=== PATIENT | male | born 1980 | race Caucasian/White ===

== ENCOUNTER 2018-02-11 10:14 | Emergency (ER) | payer OTHER ==
[2018-02-11 10:22] VITALS: BP 138/91; PULSE 71; TEMP 98.1; BMI 30.9
[2018-02-11] MEDS ORDERED: KETOROLAC TROMETHAMINE 30 MG/1 ML VIAL IM ONE (10:52)
--- NOTE | 2018-02-11 10:54 | PDOC ---
History of Present Illness - General Chief Complaint: Injury Stated Complaint: INJURY Time Seen by Provider: 02/11/18 10:36 History Source: Patient - History of Present Illness Initial Comments: 02/11/18 12:00 37 year old male with no medical or surgical history present after accidental fall from back of non moving trailer while working. Patient reports using right arm to break fall. Denies head trauma or loss of consciousness. Complaining of pain, swelling and redness to right forearm and wrist. States unable to move right arm, denies numbness or tingling in finger. Occurred: reports: just prior to arrival Severity: reports: severe Pain Location: reports: upper extremity Method of Injury: Yes: fall Modifying Factors: improves with: immobilization Loss of Consciousness: no loss of consciousness Associated Symptoms (Fall): denies symptoms Past History - Travel Traveled outside of the country in the last 30 days: No - Past Medical History Allergies/Adverse Reactions: Allergies Allergy/AdvReac Type Severity Reaction Status Date / Time No Known Allergies Allergy Verified 02/11/18 10:19 Home Medications: Ambulatory Orders Ibuprofen [Motrin -] 600 mg PO TID #21 tablet 02/11/18 Oxycodone HCl/Acetaminophen [Percocet 5-325 mg Tablet] 1 - 2 tab PO Q4H PRN #30 tablet MDD 6 02/11/18 COPD: No DVT: No Dementia: No - Immunization History Td Vaccination: No - Suicide/Smoking/Psychosocial Hx Smoking Status: No Smoking History: Never smoked Number of Cigarettes Smoked Daily: 0 Information on smoking cessation initiated: No Hx Alcohol Use: No Drug/Substance Use Hx: No Substance Use Type: None Trauma Specific PMHX - Complaint Specific PMHX Arthritis: No Back Injury: No Neck Injury: No Hx Sacro Iliac Joint Dysfunction: No Review of Systems - Review of Systems Able to Perform ROS?: Yes Is the patient limited Estonian proficient: No Constitutional: No: Chills, Fever, Night Sweats, Weakness HEENTM: No: Nose Pain, Nose Congestion, Throat Swelling, Mouth Pain Respiratory: No: Cough, Orthopnea, Shortness of Breath, Wheezing, Productive cough Musculoskeletal: Yes: Joint Pain, Joint Swelling, Other (right wrist and forearm injury). No: Back Pain Integumentary: Yes: Bruising, Erythema Neurological: No: Paresthesia *Physical Exam - Vital Signs Last Vital Signs Temp Pulse Resp BP Pulse Ox 98.1 F 71 18 138/91 98 02/11/18 10:20 02/11/18 10:20 02/11/18 10:20 02/11/18 10:20 02/11/18 10:20 - Physical Exam General Appearance: Yes: Nourished, Appropriately Dressed HEENT: positive: YASMIN, Pharynx Normal. negative: Rhinorrhea, Sinus Tenderness Neck: positive: Supple. 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 NML intact, Fully Oriented, Alert Medical Decision Making - Medical Decision Making 02/11/18 12:07 37 year old male accidentally fell from top of trailer today while working using right arm to break fall A/p fracture of wrist -analgesia: given percocet and toradol -xray of wrist and forearm reassess + radial fracture + dislocation +dorsal hand cominuted fracture 02/11/18 13:32 ortho consulted morhine 4mg iv by AIR QUALITY ENGINEER Kalin Viramontes attended and reduced right wrist, and cast placed post reduction xray shows improvemet in alignment D/c home with strick elevation instruction rx: percocet instructed to follow up in with Dr. Dalton in 1 week *DC/Admit/Observation/Transfer Diagnosis at time of Disposition: Distal radius fracture, right Qualifiers: Encounter type: initial encounter Fracture type: closed Fracture morphology: unspecified fracture morphology Qualified Code(s): S52.501A - Unspecified fracture of the lower end of right radius, initial encounter for closed fracture Dislocation of wrist, closed Qualifiers: Encounter type: initial encounter Laterality: right Qualified Code(s): S63.004A - Unspecified dislocation of right wrist and hand, initial encounter - Discharge Dispostion Disposition: HOME Condition at time of disposition: Fair - Prescriptions Prescriptions: Ibuprofen [Motrin -] 600 mg PO TID #21 tablet Oxycodone HCl/Acetaminophen [Percocet 5-325 mg Tablet] 1 - 2 tab PO Q4H PRN #30 tablet MDD 6 PRN Reason: Pain - Referrals Referrals: Oseas Dalton MD [Staff Physician] - 2 Days (call tuesday for appointment this week ) - Patient Instructions Printed Discharge Instructions: How to Use a Sling Additional Instructions: PLEASE KEEP RIGHT ARM ELEVATED AT ALL TIMES -CALL DR. DALTON ON TUESDAY FOR FOLLOW UP APPOINTMENT -TAKE IBUPROFEN FOR PAIN AND PERCOCET FOR SEVERE PAIN - Post Discharge Activity Forms/Work/School Notes: Back to Work
[2018-02-11] MEDS ORDERED: KETOROLAC TROMETHAMINE 30 MG/1 ML VIAL ONE (10:55)
[2018-02-11] MEDS ORDERED: morphine SULFATE 4 MG/ML VIAL IVPUSH ONE (11:46)
[2018-02-11] MEDS ORDERED: LIDOCAINE HCL 2% (20ML MULTI-DOSE VIAL) NR ONE (11:46)
[2018-02-11] MEDS ORDERED: LIDOCAINE HCL 2% (50ML VIAL) SQ ONE (11:47)
[2018-02-11] MEDS ORDERED: morphine SULFATE 4 MG/ML VIAL ONE (11:49)
--- NOTE | 2018-02-11 12:49 | CONSULT ---
Consult Consult Specialty:: orthopedics - History of Present Illness History of Present Illness: 37y/o male c/o right wrist pain after falling of a trailer at work earlier today. He fell on his outstretched right wrist and immediately had pain. The pain is worse with use and better with rest. He came to the ED and had x-rays and was diagnosed with a distal radius fracture. He has pain with motion of the fingers. Denies numbness. There are no other associated, aggravating or relieving factors. - History Source History Provided By: Patient, Medical Record - Alcohol/Substance Use Hx Alcohol Use: No - Smoking History Smoking history: Never smoked Aproximately how many cigarettes per day: 0 Home Medications - Allergies Allergies/Adverse Reactions: Allergies Allergy/AdvReac Type Severity Reaction Status Date / Time No Known Allergies Allergy Verified 02/11/18 10:19 - Home Medications Home Medications: Ambulatory Orders Ibuprofen [Motrin -] 600 mg PO TID #21 tablet 02/11/18 Oxycodone HCl/Acetaminophen [Percocet 5-325 mg Tablet] 1 - 2 tab PO Q4H PRN #30 tablet MDD 6 02/11/18 Review of Systems - Review of Systems Constitutional: reports: No Symptoms Eyes: reports: No Symptoms HENT: reports: No Symptoms Neck: reports: No Symptoms Cardiovascular: reports: No Symptoms Respiratory: reports: No Symptoms Gastrointestinal: reports: No Symptoms Genitourinary: reports: No Symptoms Breasts: reports: No Symptoms Reported Musculoskeletal: reports: No Symptoms Integumentary: reports: No Symptoms Neurological: reports: No Symptoms Endocrine: reports: No Symptoms Hematology/Lymphatic: reports: No Symptoms Psychiatric: reports: No Symptoms Physical Exam Vital Signs: Vital Signs Temperature 98.1 F 02/11/18 10:20 Pulse Rate 71 02/11/18 10:20 Respiratory Rate 18 02/11/18 10:20 Blood Pressure 138/91 02/11/18 10:20 O2 Sat by Pulse Oximetry (%) 98 02/11/18 10:20 Constitutional: Yes: Well Nourished, No Distress, Calm Extremities: Yes: Other (Right wrist: Dinner fork deformity of the wrist. Mild edema. NO ecchymosis or open wounds. Tenderness over the distal radius. Pain with motion. Sensation intact. Well perfused.) Imaging - Results X-ray: Report Reviewed, Image Reviewed (Severely comminuted distal radus fracture with displacement and interarticiular extension) Assessment/Plan #1 Right distal radius fracture -Discussed today's findings and treatment options with the patient. I have explained to him he has a severe, displaced fracture of the distal radius. I have recommended closed reduction in the ER. He will likely need surgery even after the closed reduction and understands. He would like to proceed Closed reduction, Right distal radius fracture: Verbal consent was obtained. 10cc of 2% lidocaine was administered via hematoma block dorsally along the distal radius. After 10 minutes the arm was hung in traction for approximately 10 minutes. The wrist was then manipulated and correction of the deformity was achieved. The patient tolerated the procedure well. A short arm cast was then placed and a 3 point mold was made. NV exam intact after the reduction. This procedure was performed under the direct supervision of Dr. Darwin Rankin. -Elevation of the extremity discussed -Finger ROM discussed -F/u within [address] Mario.
== END 2018-02-11 13:49 | disposition home or self-care (01) ==
LOC: JERFT 10:14
PROC: 0PSHXZZ Reposition Right Radius, External Approach (ICD-10-PCS; principal; 2018-02-11)
PROC: 3E0233Z Introduction of Anti-inflammatory into Muscle, Percutaneous Approach (ICD-10-PCS; 2018-02-11)
PROC: 3E033NZ Introduction of Analgesics, Hypnotics, Sedatives into Peripheral Vein, Percutaneous Approach (ICD-10-PCS; 2018-02-11)
DX: S52.591A Other fractures of lower end of right radius, initial encounter for closed fracture (principal); W17.89XA Other fall from one level to another, initial encounter; Y93.89 Activity, other specified; Y92.89 Other specified places as the place of occurrence of the external cause; Y99.0 Civilian activity done for income or pay
CPT/HCPCS: 73090-TC-RT-FY; 73110-TC-RT-FY; 73130-TC-RT-FY; 99282-25

== ENCOUNTER 2018-02-22 13:05 | Day surgery (SDC) | payer OTHER ==
[2018-02-21 10:14] VITALS: BMI 30.9
[2018-02-22] MEDS ORDERED: BUPIVACAINE HCL/PF (5 MG/ML) 30 ML VIAL IJ ONE (14:55)
[2018-02-22] MEDS ORDERED: DEXAMETHASONE SOD PHOSPHATE/PF 10 MG/ML SDV ONE (14:55)
[2018-02-22] MEDS ORDERED: MIDAZOLAM HCL 2 MG/2 ML SINGLE DOSE VIAL ONE ×2 (14:55→16:08)
[2018-02-22] MEDS ORDERED: PROPOFOL 20 ML ONE ×5 (15:13→16:27)
[2018-02-22] MEDS ORDERED: SUCCINYLCHOLINE CHLORIDE 200 MG/10 ML VIAL ONE (15:14)
[2018-02-22] MEDS ORDERED: ceFAZolin SODIUM 1 GM VIAL ONE (15:42)
[2018-02-22] MEDS ORDERED: KETAMINE HCL 200 MG/20 ML VIAL ONE (16:05)
[2018-02-22] MEDS ORDERED: ONDANSETRON 4 MG/2 ML VIAL ONE ×2 (16:06→16:21)
[2018-02-22] MEDS ORDERED: GLYCOPYRROLATE 0.2 MG/1 ML VIAL ONE (16:06)
[2018-02-22] MEDS ORDERED: DEXAMETHASONE SOD PHOSPHATE 4 MG/1 ML VIAL ONE ×2 (16:21→16:22)
[2018-02-22] MEDS ORDERED: ONDANSETRON 4 MG/2 ML VIAL IVPUSH PRN (16:47)
[2018-02-22] MEDS ORDERED: oxyCODONE HCL 5 MG TABLET PO PRN (16:47)
[2018-02-22] MEDS ORDERED: LACTATED RINGERS SOLUTION 1,000 ML IV SCH (17:00)
[2018-02-22 18:04] VITALS: TEMP 98
[2018-02-22 18:28] VITALS: BP 126/87; PULSE 86
--- NOTE | 2018-02-23 00:55 | OP ---
DATE OF OPERATION: 02/22/2018 PREOPERATIVE DIAGNOSIS: Right comminuted intraarticular displaced distal radius fracture. POSTOPERATIVE DIAGNOSIS: Right comminuted intraarticular displaced distal radius fracture. OPERATIVE PROCEDURE: 1. Open reduction internal fixation of right highly-comminuted intraarticular displaced distal radius fracture with internal fixation of 3 or more fragments. 2. Right brachioradialis tenotomy. SURGEON: Oseas Mario MD BOX SORTER: Emmanuel Viramontes PA-C, MPAS ANESTHESIA: Regional. COMPLICATIONS: None. ESTIMATED BLOOD LOSS: Minimal. INDICATION FOR PROCEDURE: The patient is a 37-year-old male with the above findings, indicated for operative treatment. Risks, benefits, alternatives were discussed with the patient at length. Proper informed consent was obtained. PROCEDURE: After proper identification of the patient and correct operative site, the patient was brought to the operating room and placed supine on the operating room table. All prominences were well padded. Sedation and regional anesthesia were given. Intravenous antibiotics were given. Timeout procedure was performed. Right upper extremity was prepped and draped in the usual sterile fashion. A well-padded tourniquet was placed with a sterile prep. Esmarch bandage was used to exsanguinate the right upper extremity. Tourniquet was inflated to 250 mmHg. Longitudinal incision was made over the distal radius volarly. Incision was made sharply through the skin with blunt and sharp dissection of the subcutaneous tissues. The flexor carpi radialis tendon along with the contents of the carpal canal were bluntly and gently retracted ulnarly for the remainder of the procedure. Pronator quadratus was divided longitudinally and had been partially ruptured. A large intraarticular fragment, which was the ulnar volar piece was found completely rotated and flipped into the pronator quadratus and it ruptured it partially. The pronator quadratus was elevated off of the distal radius. Large radial styloid fragment and other intraarticular fractures were noted. Due to the displacement of the volar ulnar facet, I was able to look intra-articularly and found no chondral damage to the lunate; however, there was significant articular damage to the distal radius and there were multiple pieces were "dusted" and were not repairable. I was able to restore the majority of the articular surface, however. The brachioradialis did not allow full reduction of the radial styloid fragment; therefore brachioradialis tenotomy was performed in a subperiosteal fashion. Once all fragments were aligned as well as possible, this was held with an Acumed Acu-Loc distal radius plate with distal locking screws and proximal nonlocking screws. This provided secure stable satisfactory fixation of the fracture with satisfactory alignment. Again, there were articular pieces that could not be reconstructed and I told the patient this preoperatively. The wound was irrigated with saline and repaired in layers using 4-0 Vicryl and 4-0 Monocryl sutures. Steri-Strips, sterile dressings, and a splint were placed. Prior to placing a splint, the distal radioulnar joint and the scapholunate intervals were stressed under live fluoroscopy and were found to be stable. Patient was reversed from sedation and brought to the recovery room in stable condition. He tolerated the procedure well. Emmanuel Viramontes, the executive marketing assistant, was interval throughout the procedure. The procedure could not have been performed without a skilled operative executive marketing assistant. Flavio [id number]
== END 2018-02-22 18:35 | disposition home or self-care (01) ==
LOC: FASU 13:05
PROVIDERS: ATTEND Orthopaedic Surgery Hand Surgery
PROC: 0LN50ZZ Release Right Lower Arm and Wrist Tendon, Open Approach (ICD-10-PCS; 2018-02-22)
PROC: 0PSH04Z Reposition Right Radius with Internal Fixation Device, Open Approach (ICD-10-PCS; principal; 2018-02-22 16:02)
DX: S52.531A Colles' fracture of right radius, initial encounter for closed fracture (principal); X58.XXXA Exposure to other specified factors, initial encounter; Y93.9 Activity, unspecified; Y92.9 Unspecified place or not applicable
CPT/HCPCS: 73110-TC-RT-FY; 73130-TC-RT-FY; 94760

== ENCOUNTER 2018-08-09 11:02 | Day surgery (SDC) | payer OTHER ==
[2018-07-31 19:07] VITALS: BMI 32.1
[2018-08-09] MEDS ORDERED: SUCCINYLCHOLINE CHLORIDE 200 MG/10 ML VIAL ONE (11:29)
[2018-08-09] MEDS ORDERED: PROPOFOL 20 ML ONE ×2 (11:29→12:13)
[2018-08-09] MEDS ORDERED: MIDAZOLAM HCL 2 MG/2 ML SINGLE DOSE VIAL ONE (11:29)
[2018-08-09] MEDS ORDERED: ONDANSETRON 4 MG/2 ML VIAL ONE (11:32)
[2018-08-09] MEDS ORDERED: LIDOCAINE HCL/PF 2% SDV 5ML VIAL ONE ×2 (11:32→11:34)
[2018-08-09] MEDS ORDERED: DEXAMETHASONE SOD PHOSPHATE 4 MG/1 ML VIAL ONE (11:32)
[2018-08-09] MEDS ORDERED: GUM MASTIC/STORAX/MSAL/ALCOHOL 1 DRP DROPSBTL MC ONE (12:25)
[2018-08-09] MEDS ORDERED: KETOROLAC TROMETHAMINE 30 MG/1 ML VIAL ONE (12:41)
[2018-08-09] MEDS ORDERED: oxyCODONE HCL 5 MG TABLET PO PRN (12:49)
[2018-08-09] MEDS ORDERED: ONDANSETRON 4 MG/2 ML VIAL IVPUSH PRN (12:49)
[2018-08-09] MEDS ORDERED: LACTATED RINGERS SOLUTION 1,000 ML IV SCH (13:00)
--- NOTE | 2018-08-09 13:49 | OP ---
DATE OF OPERATION: 08/09/2018 PREOPERATIVE DIAGNOSIS: Right wrist painful prosthesis. POSTOPERATIVE DIAGNOSIS: Right wrist painful prosthesis. OPERATIVE PROCEDURE: Removal of deep prosthesis, right wrist. SURGEON: Oseas Dalton MD GATE SERVICES SUPERVISOR: BC Mcneil ANESTHESIA: General. COMPLICATIONS: None. ESTIMATED BLOOD LOSS: Minimal. INDICATIONS FOR PROCEDURE: The patient is a 38-year-old male with the above finding, indicated for operative treatment. Risks, benefits, alternatives were discussed with patient at length. Proper informed consent was obtained. PROCEDURE: After proper identification of patient and correct operative site, patient was brought to operating room and placed supine on the table, prominences well padded. General anesthesia, intravenous antibiotics were given. Right upper extremity was prepped and draped in sterile fashion. A well-padded tourniquet was placed over a sterile prep. Esmarch bandage to exsanguinate right upper extremity. Tourniquet was inflated to 250 mmHg. The patient's prior incision was used as a guide and a small section was ellipsed out, as there was scar tissue here. Incision was taken sharply through the skin. Blunt and sharp dissection performed through the subcutaneous tissues. Flexor carpi radialis tendon was retracted ulnarly along with the content of the carpal canal in a blunt and gentle fashion throughout the remainder of the procedure. Any fibrous tissue over the plate was removed and each individual screw was cleared. The screws were then all removed and the plate was removed. Any prominences on the radius were smoothed out. X-rays confirmed removal of all hardware. The wound was repaired in layers using 4-0 Vicryl and 4-0 Monocryl. Steri-Strips were placed. Sterile dressings were applied. Patient was reversed from anesthesia and brought to the recovery room in stable condition. Emmanuel Viramontes, the clinical assistant, was integral throughout the procedure. The procedure could not be performed without a skilled operative clinical assistant. OSEAS DALTON M.D. [id number]
[2018-08-09] MEDS: oxyCODONE HCL 5 MG TABLET PO PRN ×2 (13:50→14:24)
[2018-08-09] MEDS ORDERED: oxyCODONE HCL 5 MG TABLET ONE (14:20)
[2018-08-09 15:21] VITALS: BP 132/77; PULSE 68; TEMP 98
--- NOTE | 2018-08-14 16:56 | PATH ---
Surgical Pathology Report Patient Name: STEPHANIE MANE Med. Rec. #: [id number] /Age/Gender: 1980 (Age: 38) / M Account: [id number] Location: [facility] Taken: 08/09/2018 Received: 08/09/2018 Reported: 08/14/2018 Physicians: Oseas Mario M.D. Specimen(s) Received HARDWARE RIGHT WRIST Clinical History Painful hardware right wrist Final Diagnosis WRIST, RIGHT, HARDWARE, REMOVAL: SURGICAL HARDWARE. MACROSCOPIC DIAGNOSIS. Electronically Signed Concepción Dorado M.D. Gross Description Received fresh labeled "hardware right wrist," is a 5.0 x 2.5 x 0.2 cm sy metallic plate. Also received within the same container are 8 metallic screws ranging from 1.5-2.5 in length. No soft tissue is present. No sections are submitted, gross only. saudi/08/10/2018
== END 2018-08-09 15:22 | disposition home or self-care (01) ==
LOC: FASU 11:02
PROVIDERS: ATTEND Orthopaedic Surgery Hand Surgery
PROC: 0RPN04Z Removal of Internal Fixation Device from Right Wrist Joint, Open Approach (ICD-10-PCS; principal; 2018-08-09 12:11)
DX: T84.84XA Pain due to internal orthopedic prosthetic devices, implants and grafts, initial encounter (principal); Y79.1 Therapeutic (nonsurgical) and rehabilitative orthopedic devices associated with adverse incidents; Y92.9 Unspecified place or not applicable
CPT/HCPCS: 73110-TC-RT-FY; 88300-TC; 94760